=== PATIENT | female | born 2000 | race Caucasian/White ===

== ENCOUNTER 2025-02-05 22:19 | Emergency (ER) | payer OTHER, SELFPAY ==
[2025-02-05] VITALS (13 sets, daily range): BP systolic 95–130; BP diastolic 60–85; PULSE 89–94; RESP 18; TEMP 36.6; O2SAT 98–100
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
--- NOTE | 2025-02-05 23:34 | PC.NURSE ---
Report received from JERRELL Saunders. Assumed care of patient at this time.
--- OUTSIDE RECORDS SUMMARY | 2025-02-05 23:56 | XMS_ITS | Clinical Summary ---
Author Organization [facility] Address [address] [place] [address] Care Team Providers Care Media Sales Consultant Name Role Phone Unavailable Primary Care Provider Unavailabl e Allergies No known active allergies Medications fluticasone propionate (FLONASE) 50 MCG/ACT nasal sprayIndications :Upper respiratory infection, acute 2 sprays by Nasal route nightly at bedtime. 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 Routine sports physical exam 10/29/2015 Impetigo 06/01/2014 Ankle sprain 12/30/2013 Closed fracture of metatarsal bone 10/28/2012 Sprain and strain of interphalangeal (joint) of hand 10/23/2012 Resolved Problems Problem Noted Date Diagnosed Date Resolved Date Screening-pulmonary TB 06/01/201811/10 Encounter for routine child health examination without abnormal findings 03/16/2012 Immunizations Immunization Administration Dates Next Due Dtap 04/13/2007, 5,05/10/2003,03/09 Flucelvax 6 Months+ (Prefill ed Syringe) 04/28/2019 HPV 05/12/2016,01/11/2016,11/12/2015 HPV GARDASIL 9-VALENT 01/11/2016 HPV4 (Gardasil) 05/12/2016,11/12/2015 Hepatitis B (Generic Peds) 10/05/2003,03/09/2003 Hib (Generic) 2002 Influenza (FluMist) 03/25/2012 Influenza (Generic) 01/23/2015,12/23/2012 Influenza Adult (Generic) 01/23/2015,12/30/2013, 12/23/2012 MMR 10/05/2003 MMR (Generic) 04/13/2007 Meningococcal (Menactra) 09/07/2019 Pediarix 2002 Polio Ipv (Generic) 04/13/2007,05/10/2003,2003 Prevnar(Pcv 7) 04/26/2004, 4,03/09/2003,12/14 Tdap (Generic) 01/26/2013 Varicella (Varivax) 10/05/2003 Social History Tobacco Use Types Packs/Day Years Used Date Smoking Tobacco: Never Smokeless Tobacco: Never Alcohol Use Standard Drinks/Week Comments No 0 (1 standard drink = 0.6 oz pur e alcohol) AUDIT-C Answer Date Recorded Frequency of Alcohol Consumption Never 06/01/2018 Average Number of Drinks Not on file 019 Frequency of Binge Drinking Not on file 04/2018 PHQ-2 Answer Date Recorded PHQ-2 Score - If the patient scores above 3, please move on to questions 3-9 0 09/07/2019 Comments No Sex and Gender Information Value Date Recorded Sex Assigned at Not on file Legal Sex Female 9:21 PM CDT Gender Identity Not on file Sexual Orientation Not on file Last Filed Vital Signs Vital Sign Reading Time Taken Comments Blood Pressure 87/45 09/07/2019 10:53 AM CDT Pulse 97 09/07/2019 10:53 AM CDT Temperature 37.2 C (99 F) 09/07/2019 10:53 AM CDT scanner Respiratory Rate 16 07/07/2018 7:51 PM CDT Oxygen Saturation 99% 09/07/2019 10:53 AM CDT Inhaled Oxygen Concentration - - Weight 49.6 kg (109 lb 4.8 oz) 09/07/2019 10:53 AM CDT Height 167.6 cm (5' 6) 09/07/2019 10:53 AM CDT Body Mass Index 17.64 09/07/2019 10:53 AM CDT Plan of Treatment Health Maintenance Due Date Last Done Comments Cervical Cancer Screening Pap Smear (Age 21 to 29) Every 3 Years 2002 Cervical Cancer Screening 2002 Meningococcal B Vaccine (1 of 2 - Standard) 2018 Annual Physical 06/02/2019 06/01/2018 Hepatitis C 2020 DTaP, Tdap and Td Vaccines (7 - Td or Tdap) 01/26/2023 01/26/2013, 04/13/2007, 04/26/2004, Additional history exists COVID-19 Vaccine ( season) 2024 Influenza Adult (#1) 2024 04/28/2019, 01/23/2015, 01/23/2015, Additional history exists Hepatitis B Vaccines Completed 10/05/2003, 03/09/2003, 2002 HPV Vaccines Completed 05/12/2016, 04/30, 01/11/2016, Additional history exists Meningococcal Vaccine Completed 09/07/2019 Hepatitis A Vaccines Aged Out No long er eligible based on patient's age to complete this topic Pneumococcal Vaccine: Pediatrics (0 to 5 Years) and At-Risk Patients (6 to 49 Years) Aged Out No longer eligible based on patient's age to complete this topic RSV Immunizations Under 20 Months Aged Out No longer eligible based on patient's age to complete this topic Insurance
[2025-02-06] VITALS (23 sets, daily range): BP systolic 91–107; BP diastolic 51–85; PULSE 79–93; RESP 16–18; TEMP 36.7–36.8; O2SAT 98–100
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
[2025-02-06] MEDS: MORPHINE SULFATE (*CRX) 4 MG/ML INJ 2 MG IV PUSH (00:36)
[2025-02-06 00:41] LABS: Hematocrit 39.1 % (37.0-47.0); Hemoglobin 13.4 g/dL (12.0-15.0); Immature Granulocyte Percent A 0.1 % (0-0.5); Lymphocytes Absolute Auto 1.64 K/mm3 (0.9-3.2); Mean Corpuscular HGB Conc 34.3 g/dl (32-36); Mean Corpuscular Hemoglobin 31.8 pg (26-34); Mean Corpuscular Volume 92.9 fl (80-100); Nucleated Red Blood Cells Absolute Auto 0.000 K/mm3 (0.0-0.012); Nucleated Red Blood Cells Perc 0.0 % (0.0-0.2); Platelet Count Result 229 k/mm3 (150-375); Red Blood Count 4.21 M/mm3 (4.2-5.4); White Blood Count 6.9 K/mm3 (4.5-10.0)
[2025-02-06 00:47] LABS: Add Urine Microscopic? YES; Appearance Urine Cloudy (Clear); Glucose Urine UA Negative (Negative); Leukocyte Esterase Ur 2+ LEU/UL (Negative); Nitrate Urine Positive (Negative); Specific Grav Ur 1.022 (1.001-1.035)
[2025-02-06 00:52] LABS: Alanine Aminotransferase 19 U/L (6-35); Albumin Level 4.6 g/dL (3.5-5.1); Alkaline Phosphatase 37 U/L (38-126); Anion Gap 10 mmol/L (4-12); Aspartate Amino Transferase 25 U/L (14-36); Bilirubin,Total 0.4 mg/dL (0.2-1.3); Blood Urea Nitrogen 10 mg/dL (7-17); Calcium 9.5 mg/dL (8.4-10.2); Carbon Dioxide 22 mmol/L (22-30); Chloride 105 mmol/L (98-107); Estimated CRCL calculation 93 ml/min; Estimated Glomerular Filt Rate > 60; Glucose 100 mg/dL (65-110); Potassium 3.4 mmol/L (3.4-5.0); Sodium 137 mmol/L (137-145); Total Protein 8.0 g/dL (6.3-8.2)
[2025-02-06 01:03] LABS: BEDSIDEPREGUCG Negative (Negative)
[2025-02-06] MEDS: SODIUM CHLORIDE 0.9% IV 1,000 ML 999 ML IV CONT (02:38)
[2025-02-06] MEDS: MORPHINE SULFATE (*CRX) 4 MG/ML INJ IV PUSH (02:38)
[2025-02-06] MEDS: ONDANSETRON INJ 4 MG/2 ML VIAL IV PUSH (02:38)
--- NOTE | 2025-02-06 02:52 | PC.NURSE ---
C-collar removed by OPTOMETRY TEACHER.
[2025-02-06] MEDS: KETOROLAC 15 MG/ML VIAL (*BKC) IV PUSH (03:31)
== END 2025-02-06 05:25 | disposition home or self-care (01) ==
PROVIDERS: Registered Nurse; Emergency Provider Student in an Organized Health Care Education/Training Program
DX: M25.551 Pain in right hip (principal); S13.4XXA Sprain of ligaments of cervical spine, initial encounter; S06.0X0A Concussion without loss of consciousness, initial encounter; S39.012A Strain of muscle, fascia and tendon of lower back, initial encounter; R07.89 Other chest pain; N39.0 Urinary tract infection, site not specified; V89.2XXA Person injured in unspecified motor-vehicle accident, traffic, initial encounter; W22.10XA Striking against or struck by unspecified automobile airbag, initial encounter
CPT/HCPCS: 36415; 70450; 71260; 72125; 72131; 74177; 80053; 81001; 81025; 85025; 87086; 87147; 87186; 96361; 96374; 96375; 96376; 99284; A9270; J1885; J2270; J2405; J7030; Q9967